=== PATIENT | female | born 1980 | race Two or more races ===

== ENCOUNTER 2022-02-28 06:37 | Emergency (ER) | payer MEDICAID, OTHER ==
[~2022-02-28] VITALS: Ht 165.1 cm; Wt 97.5 kg
[2022-02-28 08:14] LABS: Basophils # (auto) 0 10 ^3/uL (0-0.2); Eosinophils # (auto) 0 10 ^3/uL (0-0.8); Lymphocytes # (auto) 0.7 10 ^3/uL (0.4-5.4); Monocytes # (auto) 0.3 10 ^3/uL (0-1.3); White Blood Cell 3.1 10^3/uL (4.4-10.8)
[2022-02-28 08:16] LABS: Basophils % (auto) 0.8 % (0.0-2.0); Eosinophils % (auto) 0.4 % (0.0-7.0); Hematocrit 34.3 % (36.0-46.0); Hemoglobin 10.7 g/dL (12.2-16.2); Lymphocytes % (auto) 21.9 % (10.0-50.0); Mean Corpuscular Hgb Conc. 31.2 g/dL (32.0-36.0); Mean Corpuscular Volume 70.6 fL (80.0-100.0); Monocytes % (auto) 10.7 % (0.0-12.0); Neutrophils % (auto) 66.2 % (37.0-80.0); Nucleated Red Blood Cells % 0.1 %; Red Blood Cells 4.86 10^6/uL (4.0-5.20)
[2022-02-28 08:25] LABS: Albumin 3.8 g/dL (3.4-5.0); BUN/Creatinine Ratio 10.3; Calcium 9.2 mg/dL (8.5-10.1); Potassium 4.2 mmol/L (3.5-5.1)
[2022-02-28 08:28] LABS: Bilirubin, Total 0.4 mg/dL (0.2-1.0); Total Protein 7.5 g/dL (6.4-8.2)
[2022-02-28 13:03] VITALS: BP 151/88
== END 2022-02-28 13:11 | disposition home or self-care (01) ==
LOC: ER 06:37
DX: R07.89 Other chest pain (principal); R51.9 Headache, unspecified; E78.5 Hyperlipidemia, unspecified
CPT/HCPCS: 36415; 70450; 71045; 80053; 84484; 85025; 93005